=== PATIENT | male | born 1945 | race Two or more races ===

== ENCOUNTER 2019-03-20 06:49 | Outpatient (CLI) | payer OTHER ==
[2019-03-20] MEDS ORDERED: COZAAR50 MG PO (10:34)
[2019-03-20] MEDS ORDERED: FENOFIBRAT PO (10:35)
[2019-03-20] MEDS ORDERED: LEVOTHY PO (10:35)
[2019-03-20] MEDS ORDERED: LEVO-T25 MCG PO (10:49)
== END 2019-03-20 07:03 | disposition home or self-care (01) ==
LOC: LAB 06:49
DX: K64.8 Other hemorrhoids (principal); R19.5 Other fecal abnormalities; L29.0 Pruritus ani

== ENCOUNTER 2019-03-25 06:10 | Day surgery (SDC) | payer OTHER ==
[~2019-03-25 06:10] MED LIST: COZAAR50 MG PO; FENOFIBRAT PO; LEVO-T25 MCG PO; LEVOTHY PO
[2019-03-25] MEDS ORDERED: DIBUCAINE30 GM RECTAL (09:32)
[2019-03-25] MEDS ORDERED: PERCOCET 5-3251 EACH PO (09:37)
== END 2019-03-25 16:35 | disposition home or self-care (01) ==
LOC: CIR.AMB 06:10
DX: K60.3 Anal fistula (principal)